=== PATIENT | female | born 1965 | race Caucasian/White ===

== ENCOUNTER 2017-08-26 10:52 | Emergency (ER) | payer MEDICAID, OTHER ==
[~2017-08-26] VITALS: Ht 167.6 cm; Wt 84.0 kg
[~2017-08-26 10:52] MED LIST: ALPR0.25 PO; CETI10TA24 PO; CLON-365 PO; CYCL-259 PO; FLEXERIL; FLONASE; FLUT9.9S NAS; GABA300C10 PO; GABAPENTIN; OXYC1TAB9 PO; OXYCODONE; WELLBUTRIN; XANAX; ZYRTEC
[2017-08-26] MEDS ORDERED: DIPHENHYDRAMINE 50 MG/ML, 1ML ONE (11:26)
[2017-08-26] MEDS ORDERED: METOCLOPRAMIDE 5 MG/ML, 2ML ONE (11:26)
[2017-08-26] MEDS ORDERED: KETOROLAC 30 MG/1 ML ONE (11:26)
[2017-08-26 11:30] LABS: BASOPHILS # (AUTO) 0.08 x10^3/uL (0-0.1); BASOPHILS % (AUTO) 1 % (0-1); EOSINOPHILS # (AUTO) 0.17 x10^3/uL (0-0.4); EOSINOPHILS % (AUTO) 2 % (1-7); LYMPHOCYTES # (AUTO) 3.36 x10^3/uL (1-3.4); LYMPHOCYTES % (AUTO) 35 % (22-44); MD NO; MEAN CORPUSCULAR HEMOGLOBIN 30.2 pg (27.0-34.8); MEAN CORPUSCULAR HGB CONC 33.9 g/dL (32.4-35.8); MEAN CORPUSCULAR VOLUME 89.1 fL (80-100); MEAN PLATELET VOLUME 8.1 fL (7.4-10.4); MONOCYTES # (AUTO) 0.86 x10^3/uL (0.2-0.8); MONOCYTES % (AUTO) 9 % (2-9); NEUTROPHILS # (AUTO) 5.15 x10^3/uL (1.8-6.8); NEUTROPHILS % (AUTO) 54 % (42-75); PLATELET COUNT 216 x10^3/uL (130-400); RED BLOOD COUNT 4.94 x10^6/uL (3.82-5.3); RED CELL DISTRIBUTION WIDTH 12.6 % (9.6-15.2)
[2017-08-26] MEDS ORDERED: KETOROLAC 30 MG/1 ML IVPush ONE (11:30)
[2017-08-26] MEDS ORDERED: METOCLOPRAMIDE 5 MG/ML, 2ML IVPush ONE (11:30)
[2017-08-26] MEDS ORDERED: DIPHENHYDRAMINE 50 MG/ML, 1ML IVPush ONE (11:30)
[2017-08-26] MEDS ORDERED: SODIUM CHLORIDE 0.9% 1,000ML IVBOLUS ONE (11:30)
[2017-08-26] MEDS ORDERED: SODIUM CHLORIDE FLUSH 10ML SYR IVF ONE (11:30)
[2017-08-26 11:48] LABS: ALBUMIN 4.2 g/dL (3.4-5.0); ANION GAP 10 mmol/L (5-15); CALCIUM 9.3 mg/dL (8.5-10.1); CHLORIDE 109 mmol/L (98-107)
[2017-08-26 11:53] LABS: CREATININE 0.63 mg/dL (0.55-1.02); TROPONIN I < 0.015 ng/mL (0.000-0.045)
[2017-08-26] MEDS ORDERED: HYDROcodone/APAP 5/325 TABLET ONE (11:58)
[2017-08-26] MEDS ORDERED: METHOCARBAMOL 750 MG TABLET PO ONE (12:00)
[2017-08-26] MEDS ORDERED: HYDROcodone/APAP 5/325 TABLET PO ONE (12:00)
[2017-08-26] MEDS ORDERED: METHOCARBAMOL 750 MG TABLET ONE (12:10)
[2017-08-26 12:48] VITALS: BP 111/61
== END 2017-08-26 12:51 | disposition home or self-care (01) ==
LOC: ED 12:26
DX: A08.4 Viral intestinal infection, unspecified (principal); G44.219 Episodic tension-type headache, not intractable; F17.210 Nicotine dependence, cigarettes, uncomplicated; M54.2 Cervicalgia
CPT/HCPCS: 36415; 70450; 71045; 80048; 82040; 84484; 85025; 93005; 96361; 96374; 96375; 99285; J1200; J2765; J7030

== ENCOUNTER → 2018-10-15 | Outpatient (CLI) | payer MEDICAID ==
[~2018-10-15] MED LIST changes: -CLON-365 PO; +CLON1TAB11 PO; +OXYC-432 PO; -OXYC1TAB9 PO
== END | disposition home or self-care (01) ==
LOC: CFH 16:01
PROVIDERS: ATTEND Specialist
DX: Z12.31 Encounter for screening mammogram for malignant neoplasm of breast (principal)
CPT/HCPCS: 77063; 77067

== ENCOUNTER 2019-04-03 15:48 | Emergency (ER) | payer MEDICAID ==
[~2019-04-03] VITALS: Ht 167.6 cm; Wt 92.2 kg
--- NOTE | 2019-04-03 16:55 | NUR ---
[employer]: PT TO ROOM FROM [facility]
--- NOTE | 2019-04-03 16:59 | NUR ---
PT ASKED TO CHANGE INTO GOWN.
[2019-04-03] MEDS ORDERED: OMNIPAQUE 350 MG/ML, 100ML BOTTLE ONE (17:11)
[2019-04-03 17:53] LABS: ANION GAP 7 mmol/L (5-15); CALCIUM 9.1 mg/dL (8.5-10.1); CHLORIDE 109 mmol/L (98-107)
[2019-04-03 18:00] LABS: BASOPHILS # (AUTO) 0.04 x10^3/uL (0-0.1); BASOPHILS % (AUTO) 1 % (0-1); EOSINOPHILS # (AUTO) 0.24 x10^3/uL (0-0.4); EOSINOPHILS % (AUTO) 3 % (1-7); LYMPHOCYTES # (AUTO) 2.73 x10^3/uL (1-3.4); LYMPHOCYTES % (AUTO) 37 % (22-44); MD NO; MEAN CORPUSCULAR HEMOGLOBIN 30.4 pg (27.0-34.8); MEAN CORPUSCULAR HGB CONC 32.7 g/dL (32.4-35.8); MEAN CORPUSCULAR VOLUME 93.1 fL (80-100); MEAN PLATELET VOLUME 8.5 fL (7.4-10.4); MONOCYTES # (AUTO) 0.75 x10^3/uL (0.2-0.8); MONOCYTES % (AUTO) 10 % (2-9); NEUTROPHILS # (AUTO) 3.71 x10^3/uL (1.8-6.8); NEUTROPHILS % (AUTO) 50 % (42-75); PLATELET COUNT 211 x10^3/uL (130-400); RED BLOOD COUNT 4.63 x10^6/uL (3.82-5.3); RED CELL DISTRIBUTION WIDTH 12.5 % (9.6-15.2)
--- NOTE | 2019-04-03 18:23 | NUR ---
PT TO IMAGING.
--- NOTE | 2019-04-03 18:31 | NUR ---
PT BACK FROM IMAGING. CHASITY
--- NOTE | 2019-04-03 18:47 | NUR ---
REPORT GIVEN TO RN AT BEDSIDE.
--- NOTE | 2019-04-03 18:48 | NUR ---
REPORT RECEIVED FROM JACKSON STEARNS.
[2019-04-03 19:15] VITALS: BP 114/73
--- NOTE | 2019-04-03 19:27 | NUR ---
medication ordered from pharmacy at this time.
--- NOTE | 2019-04-03 19:40 | NUR ---
PT MEDICATED PER EMAR. PT TOLERATED WELL.
[2019-04-03] MEDS ORDERED: TRIAMCINOLONE ACETONIDE 40 MG/ML, 1ML IM ONE (20:00)
--- NOTE | 2019-04-03 20:12 | NUR ---
Patient given discharge instructions and they have confirmed that they understand the instructions. Patient ambulatory with steady gait.
== END 2019-04-03 20:13 | disposition home or self-care (01) ==
LOC: ED 19:09
DX: J20.8 Acute bronchitis due to other specified organisms (principal); B97.89 Other viral agents as the cause of diseases classified elsewhere; R09.1 Pleurisy
CPT/HCPCS: 36415; 71046; 71275; 80048; 85025; 93005; 96372; 99284; J3301; Q9967

== ENCOUNTER 2019-06-16 14:51 | Outpatient (CLI) | payer MEDICAID ==
[~2019-06-16 14:51] MED LIST changes: -CETI10TA24 PO; +CETI10TA26 PO
== END 2019-06-16 23:59 | disposition home or self-care (01) ==
LOC: CFH 14:51
PROVIDERS: ATTEND Pain Medicine Pain Medicine
DX: M25.552 Pain in left hip (principal)